=== PATIENT | male | born 1975 | race Caucasian/White ===

== ENCOUNTER 2019-10-28 11:25 | Emergency (ER) | payer OTHER, SELFPAY ==
--- NOTE | ~2019-10-28 | XR_ITS ---
EXAMINATION: XR shoulder RT min 2V DATE: 10/28/2019 12:24 INDICATION: Right shoulder pain post fall TECHNIQUE: AP internally and externally rotated, AP oblique externally rotated, axillary and views of the right shoulder were obtained. COMPARISON: None FINDINGS: Normal alignment. No fracture.Mild glenohumeral and acromioclavicular osteoarthritis. Soft tissues a re unremarkable. Right lung is clear. IMPRESSION: Mild glenohumeral and acromioclavicular osteoarthritis. No acute osseous abnormality. Reviewed, dictated and finalized at location A. IMPRESSION: Mild glenohumeral and acromioclavicular osteoarthritis. No acute osseous abnorm ality.
--- NOTE | ~2019-10-28 | XR_ITS ---
XR wrist RT min 3V DATE: 10/28/2019 12:24 INDICATION: Fall. Right wrist pain. TECHNIQUE: 4 views COMPARISON: None FINDINGS: No fracture or dislocation, periosteal reaction or bone destruction. Joint spaces appear re latively preserved. No erosive change or chondrocalcinosis. IMPRESSION: No fracture or dislocation Reviewed, dictated and finalized at location B. IMPRESSION: No fracture or dislocation
[2019-10-28 11:40] VITALS: BP 171/91; PULSE 93; RESP 20; TEMP 37.1; O2SAT 100
--- NOTE | 2019-10-28 11:52 | ED.GENADULT ---
HPI - General Adult General Chief complaint: Extremity Injury, Upper Stated complaint: shoulder & wrist pain/abd pain Time Seen by Provider: 10/28/19 11:56 Source: patient and RN notes reviewed Mode of arrival: ambulatory Limitations: no limitations History of Present Illness HPI narrative: 43-year-old male who presents to [facility] with complaints of pain to his right shoulder and his right wrist after lifting 75-80 pounds by himself on Saturday.Patient states that he also has some upper abdominal discomfort like he has strained something in his abdomen also. Patient states that his pain is in his right shoulder posteriorly radiating into the right side of his neck, states also he has some tingling in his right hand when he hyper extends his wrist. He has full ROM of his right wrist with strong right radial pulses, nail beds of hi right hand noé briskly. He has pain to his right shoulder with movement which is posteriorly which does radiate to the back of his neck, no palpable bulging noted to his upper abdomen with minimal discomfort upon palpation. MD complaint: right shoulder pain, right wrist pain, Onset (ago): day(s) (3) Location: abdomen (upper abdomen), right and upper extremity (right wrist) Radiation: neck Severity: moderate Severity scale (1-10): 4 Quality: aching Pain Consistency: intermittent Relieving factors: rest Exacerbating factors: movement Associated symptoms: denies other symptoms Treatments prior to arrival: NSAID Related Data Allergies Allergy/AdvReac Type Severity Reaction Status Date / Time codeine Allergy Mild Hives Verified 10/28/19 11:48 Review of Systems Review of Systems: Narrative: CONSTITUTIONAL: Denies fever, chills, or sweats. EYES: Denies visual changes, redness, or discharge. ENT: Denies rhinorrhea, congestion, sore throat, or otalgia. CARDIOVASCULAR: Denies chest pain, palpitations, or edema. RESPIRATORY: Denies cough or dyspnea. GASTROINTESTINAL: reports upper abdominal tenderness with movement, no nausea, vomiting, or diarrhea. GENITOURINARY: Denies dysuria or hematuria. SKIN: Denies rash or itching. MUSCULOSKELETAL: Denies back pain, joint pain, or myalgia.positive for right shoulder and right wrist pain NEUROLOGIC: Denies headache, numbness, or weakness. PSYCHIATRIC: Denies anxiety or depression. All systems reviewed & are unremarkable except as noted in HPI and below PMFSH Past Medical History Medical History (Updated 10/29/19 @ 08:52 by Shari Hawkins NP) Chronic bronchitis Hyperlipidemia Surgical History Surgical History (Updated 10/28/19 @ 12:18 by Shari Hawkins NP) Hx of cholecystectomy Comments At time of signature, agree with nursing past medical, surgical, social history. There is no relevant family history pertinent to the presenting complaint Exam Narrative: Exam Narrative: GENERAL: Well-appearing, well-nourished, and in no acute distress. HEAD: Normocephalic, atraumatic. EYES: PERRLA and EOMI. ENT: Nares clear, no rhinorrhea or epistaxis. Mucous membranes moist. NECK: Supple. CHEST: Clear to auscultation. No respiratory distress. HEART: Regular rate and rhythm. No murmur heard. Normal peripheral pulses. ABDOMEN: Soft, mild tenderness to upper abdomen on palpation,rounded, nondistended, normal active bowel sounds. EXTREMITIES: Normal range of motion. No edema.with exception noted to right shoulder pain posteriorly which radiates to right side of his neck with movement and right wrist pain noted with hyper extension, pulses strong to right arm and wrist with nail beds of right hand blanching briskly, SKIN: Warm, dry, no rash. NEURO: No focal deficits. Alert and oriented x3. Course Vital Signs Vital signs: Vital Signs Temperature 37.1 C 10/28/19 11:40 Pulse Rate 93 10/28/19 11:40 Respiratory Rate 20 10/28/19 11:40 Blood Pressure 171/91 H 10/28/19 11:40 Pulse Oximetry 100 10/28/19 11:40 Temperature 37.1 C 10/28/19 11:40 Pulse R
== END 2019-10-28 13:14 | disposition home or self-care (01) ==
PROVIDERS: Emergency Provider Registered Nurse
DX: S63.501A Unspecified sprain of right wrist, initial encounter (principal); M25.511 Pain in right shoulder; R10.10 Upper abdominal pain, unspecified; X50.0XXA Overexertion from strenuous movement or load, initial encounter
CPT/HCPCS: 73030; 73110; 99214; G0463

== ENCOUNTER 2020-04-09 14:24 | Emergency (ER) | payer SELFPAY | END 2020-04-09 14:41 | disposition left against medical advice (07) | LOC: EXPBETH 14:31 | PROVIDERS: Emergency Provider Nurse Practitioner | DX: Z53.21 Procedure and treatment not carried out due to patient leaving prior to being seen by health care provider (principal) | CPT/HCPCS: 99199 ==

== ENCOUNTER 2020-04-09 15:14 | Emergency (ER) | payer OTHER, SELFPAY ==
--- NOTE | ~2020-04-09 | XR_ITS ---
EXAMINATION: XR chest 1V portable DATE: 04/09/2020 16:12 INDICATION: COVID positive. One week of worsening shortness of breath. TECHNIQUE: frontal view of the chest was obtained. COMPARISON: Chest radiograph dated 05/19/2015 FINDINGS: New subtle opacities in the left mid and medial right lower lung zones. No pleural effusion or pneumo thorax. The cardiomediastinal silhouette is normal. At least mild thoracic spondylosis. IMPRESSION: 1. New subtle opacities in the left mid and right lower lung zones which could represent atelectasis or pneumonia. Reviewed, dictated and finalized at location A. [employer]
[2020-04-09 15:17] VITALS: BP 152/100; PULSE 88; RESP 24; TEMP 36.5; O2SAT 96
--- NOTE | 2020-04-09 15:37 | ED.GENADULT ---
HPI - General Adult General Chief complaint: Upper Respiratory Infection Stated complaint: COVID Time Seen by Provider: 04/09/20 15:23 Source: patient, RN notes reviewed and old records reviewed History of Present Illness HPI narrative: 44-year-old male presents to emergency department for COVID-19 symptoms for the past week. Patient states he initially noticed some joint pain, shortness of breath, and fatigue. He states the joint pain has gone away however the shortness of breath has worsened. He states he was tested a few days ago which came back positive. He has taken [id number] medications for his symptoms. He also reports fever and chills. Related Data Home Medications Medication Instructions Recorded Confirmed No Home Medications 04/09/20 04/09/20 Allergies Allergy/AdvReac Type Severity Reaction Status Date / Time codeine Allergy Mild Hives Verified 04/09/20 15:28 Review of Systems Review of Systems: Narrative: CONSTITUTIONAL: Reports fever and chills. EYES: Denies visual changes, redness, or discharge. ENT: Denies rhinorrhea, congestion, sore throat, or otalgia. CARDIOVASCULAR: Denies chest pain, palpitations, or edema. RESPIRATORY: Reports cough and shortness of breath. GASTROINTESTINAL: Denies abdominal pain, nausea, vomiting, or diarrhea. GENITOURINARY: Denies dysuria or hematuria. SKIN: Denies rash or itching. MUSCULOSKELETAL: Denies back pain, joint pain, or myalgia. NEUROLOGIC: Denies headache, numbness, dizziness. Reports weakness. PSYCHIATRIC: Denies anxiety or depression. All systems reviewed & are unremarkable except as noted in HPI and below (ROS) PMFSH Past Medical History Medical History Chronic bronchitis Hyperlipidemia Surgical History Surgical History Hx of cholecystectomy Exam Narrative: Exam Narrative: GENERAL: Well-appearing, well-nourished, and in no acute distress. HEAD: Normocephalic, atraumatic. EYES: PERRLA and EOMI. ENT: Nares clear, no rhinorrhea or epistaxis. Mucous membranes moist. NECK: Supple. CHEST: Clear to auscultation. No respiratory distress. HEART: Regular rate and rhythm. No murmur heard. Normal peripheral pulses. ABDOMEN: Soft, nontender, nondistended, normal active bowel sounds. EXTREMITIES: Normal range of motion. No edema. SKIN: Warm, dry, no rash. NEURO: No focal deficits. Alert and oriented x3. PSYCH: Normal mood and affect. Course Reevaluation(s) Reevaluation #1: 1640 -reevaluated patient, symptoms have improved. Feels better after albuterol treatments. Patient satting 96% on room air, normal sinus rhythm. Low suspicion for PE at this time. Chest x-ray concerning for Covid pneumonia. Counseled patient to follow-up with a medical provider within 1 week. Return to emergency department at any time if he notices increased work of breathing, shortness of breath, or difficulty breathing. Vital Signs Vital signs: Vital Signs Temperature 36.5 C 04/09/20 15:17 Pulse Rate 88 04/09/20 15:17 Respiratory Rate 24 H 04/09/20 15:17 Blood Pressure 152/100 H 04/09/20 15:17 Pulse Oximetry 96 04/09/20 15:17 Temperature 36.5 C 04/09/20 15:17 Pulse Rate 88 04/09/20 15:17 Respiratory Rate 24 H 04/09/20 15:17 Blood Pressure 152/100 H 04/09/20 15:17 Pulse Oximetry 96 04/09/20 15:17 Medical Decision Making Medical Records Medical records reviewed: Yes I reviewed the patient's medical records. Vital Signs Vital Signs: Vital Signs Temperature 36.5 C 04/09/20 15:17 Pulse Rate 88 04/09/20 15:17 Respiratory Rate 24 H 04/09/20 15:17 Blood Pressure 152/100 H 04/09/20 15:17 Pulse Oximetry 96 04/09/20 15:17 Temperature 36.5 C 04/09/20 15:17 Pulse Rate 88 04/09/20 15:17 Respiratory Rate 24 H 04/09/20 15:17 Blood Pressure 152/100 H 04/09/20 15:17 Pulse Oximetry 96 04/09/20 15:17 Lab [facility]
[2020-04-09] MEDS: ALBUTEROL SULFATE (*SP) AEROSOL 1 PUFF 4 PUFF INHALATION (15:50)
[2020-04-09 16:04] LABS: Basophils Percent Auto 0.2 % (0.2-1.2); Hematocrit 45.4 % (42.0-52.0); Hemoglobin 15.1 g/dL (14.0-18.0); Immature Granulocyte Absolute 0.02 K/mm3 (0.00-0.031); Immature Granulocyte Percent A 0.3 % (0-0.5); Lymphocytes Absolute Auto 1.65 K/mm3 (0.9-3.2); Lymphocytes Percent Auto 25.9 % (18.3-44.2); Mean Corpuscular HGB Conc 33.3 g/dl (32-36); Mean Corpuscular Hemoglobin 28.9 pg (26-34); Mean Corpuscular Volume 86.8 fl (80-100); Mean Platelet Volume 9.9 fl (7.4-10.4); Monocytes Absolute Auto 0.7 K/mm3 (0.1-0.6); Monocytes Percent Auto 10.8 % (2.6-8.5); Neutrophils Percent Auto 62.8 % (45.5-73.1); Platelet Count Result 290 k/mm3 (150-375); Red Blood Count 5.23 M/mm3 (4.6-6.20); Red Cell Distribution Width 14.1 % (11.5-14.5); White Blood Count 6.4 K/mm3 (4.5-10.0)
[2020-04-09] MEDS: KETOROLAC 15 MG/ML VIAL (*BKC) IV PUSH (16:09)
[2020-04-09] MEDS: ACETAMINOPHEN 325 MG TABLET 650 MG PO (16:10)
[2020-04-09 16:14] VITALS: BP 145/92; PULSE 90; RESP 20; O2SAT 95
[2020-04-09 16:16] LABS: Alanine Aminotransferase 87 U/L (4-50); Alkaline Phosphatase 107 U/L (38-126); Anion Gap 6 mmol/L (8-16); Aspartate Amino Transferase 89 U/L (17-59); Bilirubin,Total 0.6 mg/dL (0.2-1.3); Blood Urea Nitrogen 12 mg/dL (9-20); Calcium 8.8 mg/dL (8.4-10.2); Carbon Dioxide 27 mmol/L (22-30); Chloride 108 mmol/L (98-107); Estimated CRCL calculation 113 ml/min; Estimated Glomerular Filt Rate > 60; Glucose 107 mg/dL (75-110); Sodium 141 mmol/L (137-145)
[2020-04-09 16:51] VITALS: BP 145/92; PULSE 98; RESP 20; O2SAT 96
== END 2020-04-09 16:56 | disposition home or self-care (01) ==
PROVIDERS: Emergency Provider Emergency Medicine
DX: U07.1 COVID-19 (principal); J12.82 Pneumonia due to coronavirus disease 2019; E78.5 Hyperlipidemia, unspecified
CPT/HCPCS: 36415; 71045; 80053; 85025; 96374; 99284; A9270; J1885

== ENCOUNTER 2022-09-13 10:57 | Emergency (ER) | payer SELFPAY ==
--- NOTE | ~2022-09-13 | CT_ITS ---
Non-contrast Head CT History: Head injury COMPARISON: 02/18/2017 Technique: Axial non-contrast imaging of the brain was performed. Dose reduction technique was used on this scan by utilizing automated exposure control and iterative reconstruction technique. The dose -length product (DLP) was 605.33 mGy-cm. Findings: There is no evidence of intracranial hemorrhage, mass lesion, or acute infarct. Brain par enchyma appears normal. The ventricles and subarachnoid spaces are normal in size. The calvarium ap pears normal. The visualized paranasal sinuses and mastoid air cells are clear. Impression: No significant abnormality seen. Reviewed, dictated and finalized at location . Impression: No significant abnormality seen.
[2022-09-13 11:00] VITALS: BP 164/80; PULSE 107; RESP 18; TEMP 36.6; O2SAT 98
[2022-09-13] MEDS: TETANUS,DIPHTHERIA,AC PERTUSSIS ADULT (0.5 ML) BOOSTRIX IM (12:52)
--- NOTE | 2022-09-13 13:08 | ED.HEATRA ---
HPI - Head Injury General Chief complaint: Head Injury Stated complaint: hit head with trunk door Time Seen by Provider: 09/13/22 11:43 History of Present Illness HPI Narrative: 46-year-old male reports for evaluation of a head injury that occurred just prior to arrival. Patient states his was shutting the trunk of the car with his head still in the back of the trunk, the door hit the patient's head. States he did not lose consciousness or fall to the ground. He does report a laceration to the vertex of his scalp. Denies focal numbness or weakness, vision changes, other injuries acquired during the injury. Last tetanus unknown. States he took naproxen 3 hours prior to arrival. Related Data Home Medications Medication Instructions Recorded Confirmed No Home Medications 04/09/20 04/09/20 Allergies Allergy/AdvReac Type Severity Reaction Status Date / Time codeine Allergy Mild Hives Verified 04/09/20 15:28 Review of Systems Review of Systems: CONSTITUTIONAL: Denies fever, chills EYES: Denies visual changes, redness, or discharge. ENT: Denies rhinorrhea, congestion, sore throat, or otalgia. CARDIOVASCULAR: Denies chest pain, palpitations, or edema. RESPIRATORY: Denies cough or dyspnea. GASTROINTESTINAL: Denies abdominal pain, nausea, vomiting, or diarrhea. GENITOURINARY: Denies dysuria or hematuria. SKIN: See HPI MUSCULOSKELETAL: Denies back pain, joint pain, or myalgia. NEUROLOGIC: Denies headache, numbness, dizziness, or weakness. PSYCHIATRIC: Denies anxiety or depression. [facility] Past Medical History Medical History Chronic bronchitis Hyperlipidemia Surgical History Surgical History Hx of cholecystectomy Exam Narrative: GENERAL: Well-appearing, in no acute distress. HEAD: Normocephalic EYES: PERRLA ENT: Nares clear. Mucous membranes moist. Oropharynx without tonsillar hypertrophy exudate or other lesions. Bilateral TMs are velez nonbulging. NECK: Supple. CHEST: No respiratory distress. Clear to auscultation, no adventitious breath sounds. HEART: Regular rate and rhythm. No murmur heard. Normal peripheral pulses. EXTREMITIES: Normal range of motion. No edema. SKIN: 1 cm laceration to the vertex of the scalp. Bleeding controlled. No foreign bodies or deep structures visualized. NEURO: No focal deficits. Alert and oriented x3. Cranial nerves II through XII intact. Strength 5/5 in BUE and BLE. Sensation intact throughout. Ambulatory without difficulty. PSYCH: Normal mood and affect. Course Course Emergency Course: Pain medications offered to the patient, he declined. Vital Signs Vital signs: Vital Signs Temperature 97.8 F 09/13/22 11:00 Pulse Rate 107 H 09/13/22 11:00 Respiratory Rate 18 09/13/22 11:00 Blood Pressure 164/80 H 09/13/22 11:00 Pulse Oximetry 98 09/13/22 11:00 Oxygen Delivery Room Air 09/13/22 11:00 Temperature 97.8 F 09/13/22 11:00 Pulse Rate 107 H 09/13/22 11:00 Respiratory Rate 18 09/13/22 11:00 Blood Pressure 164/80 H 09/13/22 11:00 Pulse Oximetry 98 09/13/22 11:00 Oxygen Delivery Room Air 09/13/22 11:11 Procedures Laceration Laceration 1: Date: 09/13/22 Time: 13:24 Site: scalp Size (cm): 1 Description: linear and clean Depth: simple, single layer Pre-repair: wound explored and irrigated ====== Skin Level ====== Skin layer closed with: luis Number of sutures: 1 ====== Subcutaneous Layer ====== ====== Muscle Layer ====== ====== Tendon Layer ====== MDM - Head Injury MDM Narrative Medical decision making narrative: 46-year-old male reports for evaluation of a head injury that occurred just prior to arrival after his accidentally struck the car trunk on his head. Vitals reveal mildly elevated blood pressu
== END 2022-09-13 13:31 | disposition home or self-care (01) ==
PROVIDERS: Emergency Provider Physician Assistant
DX: S01.01XA Laceration without foreign body of scalp, initial encounter (principal); Z23 Encounter for immunization; J42 Unspecified chronic bronchitis; E78.5 Hyperlipidemia, unspecified; Z90.49 Acquired absence of other specified parts of digestive tract; W22.8XXA Striking against or struck by other objects, initial encounter
CPT/HCPCS: 12001; 70450; 90471; 90715; 99284

== ENCOUNTER 2022-09-20 12:08 | Emergency (ER) | payer SELFPAY ==
--- NOTE | 2022-09-20 12:13 | ED.WOUNDLAC ---
HPI - Wound/Laceration General Chief Complaint: Wound/Laceration Stated Complaint: need luis removed Time Seen by Provider: 09/20/22 12:17 Source: patient, RN notes reviewed and old records reviewed Mode of arrival: ambulatory Limitations: no limitations History of Present Illness HPI narrative: Patient was seen and evaluated on September 13 after head trauma in the local ER. One staple placed. Presents to have staple removed. Related Data Home Medications Medication Instructions Recorded Confirmed No Home Medications 04/09/20 04/09/20 Allergies Allergy/AdvReac Type Severity Reaction Status Date / Time codeine Allergy Mild Hives Verified 04/09/20 15:28 Review of Systems Review of Systems: All systems reviewed & are unremarkable except as noted in HPI and below Constitutional: Constitutional: Reports no additional constitutional complaints Eyes: Eyes: Reports no additional eye complaints ENT: Reports system reviewed and no additional complaints, except as documented Cardiovascular: Cardiovascular: Reports no additional cardiovascular complaints, Denies chest pain and Denies dyspnea Respiratory: Respiratory: Reports no additional respiratory complaints, Denies chest congestion, Denies cough and Denies dyspnea Gastrointestinal: Gastrointestinal: Reports no additional gastrointestinal complaints, Denies abdominal pain, Denies nausea and Denies vomiting Musculoskeletal: Musculoskeletal: Reports no additional musculoskeletal complaints Integumentary/Breasts: Skin/Breast: Reports as per HPI Neurologic: Reports system reviewed and no additional complaints, except as documented Psychiatric: Psychiatric: Reports no additional psychiatric complaints Allergic/Immunologic: Allergic/Immunologic: Reports no additional allergic/immunologic complaints PMFSH Past Medical History Medical History Chronic bronchitis Hyperlipidemia Surgical History Surgical History Hx of cholecystectomy Comments At the time of my signature, I reviewed and agree with the nursing past medical, surgical, social, and family history. There is no relevant family history pertinent to the patient complaint. Exam Const: General: cooperative, healthy appearing, comfortable, no acute distress, well developed, alert and well nourished Nutritional Appearance: well nourished Orientation/consciousness: patient oriented x3 Limitations: no limitations HENMT: Head: normal to inspection Ears: hearing grossly normal bilaterally and external ears normal Face/Nose/Sinus: Normal external nose present, Normal nares present, Normal nasal mucous membranes and turbinates present and normal facial exam Face and sinus: normal facial exam Eyes: General: appearance normal, both eyes and all related structures Alignment and Position: alignment normal Periorbital: periorbital findings normal Pupils: Equal, round and reactive pupils present EOM: EOMs intact bilaterally Neck: Neck: normal visual inspection, full ROM, no lymphadenopathy and no meningeal signs Chest: Chest palpation & inspection: normal inspection of the chest Resp: Effort & Inspection: normal respiratory effort and able to speak in complete sentences Cardio: Rate: regular rate Rhythm: regular rhythm Back/Spine/Pelvis: Cervical Spine: cervical ROM normal Thoracic/Lumbar Spine: No thoracic spinal tenderness Skin: General skin exam: normal color and no rashes or lesions noted Lesions: no lesions Rashes: no rashes Wounds: no wounds Other: Fully approximated healing laceration with [address] No erythema, swelling noted Neuro: General: patient oriented x3, gait normal, tone normal, moves all extremities and no meningeal signs Cranial nerves: Yes Equal, round and reactive pupils present Cognition (Neuro): normal cognition Speech: normal speech Gait exam (Neuro):
[2022-09-20 12:14] VITALS: BP 144/81; PULSE 78; RESP 16; TEMP 36.8; O2SAT 100
--- NOTE | 2022-09-20 15:59 | PC.NURSE ---
luis removed at 1202, charting is at 1558
== END 2022-09-20 12:30 | disposition home or self-care (01) ==
PROVIDERS: Emergency Provider Nurse Practitioner
DX: S01.91XD Laceration without foreign body of unspecified part of head, subsequent encounter (principal); X58.XXXD Exposure to other specified factors, subsequent encounter; E78.5 Hyperlipidemia, unspecified
CPT/HCPCS: 99211; G0463

== ENCOUNTER 2023-02-08 11:06 | Emergency (ER) | payer OTHER, SELFPAY ==
--- NOTE | ~2023-02-08 | XR_ITS ---
XR knee RT min 4V DATE: 02/08/2023 11:30 INDICATION: Pain after bending yesterday TECHNIQUE: 4 views COMPARISON: None FINDINGS: Prominent patellar enthesopathy superiorly at the quadriceps tendon insertion and inferior at the patellar tendon insertion. There is mild periarticular spurring of the patella and minimal periarticular spurring at the medial and lateral compartments. Knee joint spaces appear well preserved. No fracture or dislocation or joint effusion. No radiopaque intra-articular loose body or chondral ca lcinosis. No periosteal reaction or bone destruction. IMPRESSION: Mild tricompartment osteoarthritis Reviewed, dictated and finalized at location B. [facility]
[2023-02-08 11:08] VITALS: BP 162/83; PULSE 78; RESP 16; TEMP 36.5; O2SAT 100
--- NOTE | 2023-02-08 12:28 | ED.LOWEXIN ---
HPI - Extremity Injury (Lower) General Chief Complaint: Extremity Injury, Lower Stated Complaint: R knee injury Time Seen by Provider: 02/08/23 11:37 Source: patient History of Present Illness HPI Narrative: 47-year-old male presents to the emergency department today with complaint of right knee pain that he noticed yesterday. States he was kneeling at work when he noticed some right knee pain which had worsened when he got out of a vehicle. This morning he went to kneel down to get the money out of the save the pain was 100/10. MD complaint: knee injury Related Data Allergies Allergy/AdvReac Type Severity Reaction Status Date / Time codeine Allergy Mild Hives Verified 02/08/23 11:37 Review of Systems Review of Systems: All systems reviewed & are unremarkable except as noted in HPI and below PMFSH Past Medical History Medical History Chronic bronchitis Hyperlipidemia Hypertension Surgical History Surgical History Hx of cholecystectomy Exam Const: General: cooperative, healthy appearing, comfortable, no acute distress and well developed Orientation/consciousness: patient oriented x3 HENMT: Head: normal to inspection Eyes: General: appearance normal, both eyes and all related structures Resp: Effort & Inspection: normal respiratory effort and able to speak in complete sentences Auscultation: clear to auscultation bilaterally Cardio: Rate: regular rate Rhythm: regular rhythm Heart sounds: S1 normal heart sound present and S2 normal heart sound present Neuro: General: patient oriented x3 Extrem: Right lower extremity: knee ( Stephany Lakhani) Details: tenderness Location: of the patella (central), normal ROM, knee ligament exam normal and other ( no erythema, no effusion); no swelling, no ecchymosis and no unusual warmth Course Vital Signs Vital signs: Vital Signs Temperature 97.7 F 02/08/23 11:08 Pulse Rate 78 02/08/23 11:08 Respiratory Rate 16 02/08/23 11:08 Blood Pressure 162/83 H 02/08/23 11:08 Pulse Oximetry 100 02/08/23 11:08 Oxygen Delivery Room Air 02/08/23 11:08 Temperature 97.7 F 02/08/23 11:08 Pulse Rate 78 02/08/23 11:08 Respiratory Rate 16 02/08/23 11:08 Blood Pressure 162/83 H 02/08/23 11:08 Pulse Oximetry 100 02/08/23 11:08 Oxygen Delivery Room Air 02/08/23 11:08 MDM - Extremity Injury (Lower) MDM Narrative Medical decision making narrative: HPI is noted differentials below. Reviewed x-ray with patient. X-ray shows osteoarthritis. Ligament exam normal. Plan for discharge with NSAIDs and follow-up with primary care for further imaging if indicated. Patient aware and agreement with plan of care at this time. Differential Diagnosis Differential diagnosis: Likely acute internal derangement of knee and other ( The sprain, arthritis,) Discharge Plan Discharge Clinical Impression: Acute pain of right knee, Osteoarthritis of right knee Patient Disposition: Home, Self-Care Condition: Stable Instructions: Antibiotic Form Prescriptions: New naproxen 500 mg tablet 500 mg PO BID PRN (Reason: pain) Qty: 60 0RF Follow-up/Referrals: Bonita Anderson [Other] Time of Disposition: 12:31
== END 2023-02-08 12:37 | disposition home or self-care (01) ==
PROVIDERS: Emergency Provider Nurse Practitioner Family
DX: M17.11 Unilateral primary osteoarthritis, right knee (principal); E78.5 Hyperlipidemia, unspecified; I10 Essential (primary) hypertension
CPT/HCPCS: 73564; 99283

== ENCOUNTER 2023-04-11 13:50 | Emergency (ER) | payer BC, SELFPAY ==
--- NOTE | ~2023-04-11 | XR_ITS ---
EXAMINATION: XR chest 2V DATE: 04/11/2023 14:25 INDICATION: Cough. Lung pain. TECHNIQUE: Frontal and lateral views of the chest were obtained. COMPARISON: Chest single view 04/09/2020 FINDINGS: There is no pneumonia, pleural effusion, or pneumothorax. The heart size is normal. There a re surgical clips in the abdomen. IMPRESSION: 1. No acute cardiopulmonary disease. Reviewed, dictated and finalized at location E. [facility]
[2023-04-11 14:01] VITALS: BP 155/78; RESP 16; TEMP 36.9; O2SAT 99
--- NOTE | 2023-04-11 14:07 | ED.GENADULT ---
HPI - General Adult General Chief complaint: Upper Respiratory Infection Stated complaint: SOB/LUNG CRAMPS Time Seen by Provider: 04/11/23 14:02 Source: patient and RN notes reviewed Mode of arrival: ambulatory Limitations: no limitations History of Present Illness HPI narrative: Patient presents today complaining of an approximately 2 week history of cough with constant shortness of breath. He also reports, ?cramping? below his bilateral anterior ribs. He has been taking naproxen and Benadryl but cannot tell if it is providing him relief. Currently rates his pain 06/01. Related Data Allergies Allergy/AdvReac Type Severity Reaction Status Date / Time codeine Allergy Mild Hives Verified 02/08/23 11:37 Review of Systems Review of Systems: CONSTITUTIONAL: Denies body aches, fever, chills, or sweats. EYES: Denies visual changes, redness, or discharge. ENT: Denies rhinorrhea, congestion, sore throat, or otalgia. CARDIOVASCULAR: Denies chest pain, palpitations, or edema. RESPIRATORY: + cough, shortness of breath GASTROINTESTINAL: Denies abdominal pain, nausea, vomiting, or diarrhea. GENITOURINARY: Denies dysuria or hematuria. SKIN: Denies rash, itching, or wounds. MUSCULOSKELETAL: Denies back pain, joint pain, or myalgia. NEUROLOGIC: Denies headache, numbness, tingling, or weakness. PSYCH: Denies depression or anxiety. [facility] Past Medical History Medical History Chronic bronchitis Hyperlipidemia Hypertension Surgical History Surgical History Hx of cholecystectomy Comments At time of signature, I have reviewed and agree with nursing past medical, surgical, social and family history unless otherwise noted. Please see nursing chart for further information. There is no relevant family history pertinent to the presenting complaint Exam Narrative: GENERAL: Well-appearing, well-nourished, and in no acute distress. HEAD: Normocephalic, atraumatic. EYES: EOMI. No redness or drainage. Conjunctivae normal. ENT: Mucous membranes pink and moist. Nares clear. No rhinorrhea. TMs normal bilaterally. Throat normal. Uvula midline. NECK: Normal AROM. Supple. No lymphadenopathy. CHEST: No respiratory distress. Clear to auscultation. HEART: Regular rate and rhythm. No murmur appreciated. EXTREMITIES: Normal range of motion. No edema. SKIN: Warm, dry, no rash. Capillary refill normal. Normal skin turgor. NEURO: No focal deficits. Alert and oriented x3. Gait steady. PSYCH: Normal affect. No signs of depression or anxiety. Course Course Level of Care: Express Care Visit Vital Signs Vital signs: Vital Signs Temperature 98.5 F 04/11/23 14:01 Respiratory Rate 16 04/11/23 14:01 Blood Pressure 155/78 H 04/11/23 14:01 Pulse Oximetry 99 04/11/23 14:01 Temperature 98.5 F 04/11/23 14:01 Respiratory Rate 16 04/11/23 14:01 Blood Pressure 155/78 H 04/11/23 14:01 Pulse Oximetry 99 04/11/23 14:01 Reviewed Medical Decision Making MDM Narrative Medical decision making narrative: Chest x-ray negative. Patient will be treated for bronchitis with prednisone and an albuterol inhaler. He has declined prescription for cough medicine. Anticipatory guidance given. Differential Diagnosis Differential Diagnosis: Viral syndrome, bronchitis, pneumonia, pleurisy Vital Signs Vital Signs: Vital Signs Temperature 98.5 F 04/11/23 14:01 Respiratory Rate 16 04/11/23 14:01 Blood Pressure 155/78 H 04/11/23 14:01 Pulse Oximetry 99 04/11/23 14:01 Temperature 98.5 F 04/11/23 14:01 Respiratory Rate 16 04/11/23 14:01 Blood Pressure 155/78 H 04/11/23 14:01 Pulse Oximetry 99 04/11/23 14:01 Imaging Data Radiologist's impression: ITS Impressions Chest X-Ray 04/11/23 14:27 IMPRESSION: 1. No acute cardiopulmonary disease. Critical
== END 2023-04-11 14:50 | disposition home or self-care (01) ==
PROVIDERS: Emergency Provider Nurse Practitioner
DX: J40 Bronchitis, not specified as acute or chronic (principal); E78.5 Hyperlipidemia, unspecified; I10 Essential (primary) hypertension
CPT/HCPCS: 71046; 99213; G0463

== ENCOUNTER 2025-03-22 10:08 | Emergency (ER) | payer SELFPAY ==
[2025-03-22 10:16] VITALS: BP 137/75; PULSE 82; RESP 16; TEMP 36.6; O2SAT 97
--- NOTE | 2025-03-22 10:16 | ED.URI ---
HPI - URI/Sore Throat General Chief Complaint: Upper Respiratory Infection Stated Complaint: Upper Respiratory Symptoms Time Seen by Provider: 03/22/25 10:20 Source: patient Mode of arrival: ambulatory Limitations: no limitations History of Present Illness HPI Narrative: Mars is a 49-year-old male patient presenting to the clinic today with complaints of cough, nasal congestion, and chest congestion x1 week. He reports a cough is nonproductive. He denies any chest pain but states he does get short of breath at times. Feels as though he is wheezing a lot. History of chronic bronchitis in the past. No fevers, chills, body aches. Related Data Home Medications ?Medication ?Instructions ?Recorded ?Confirmed ?Last Taken ?Type buspirone 10 mg tablet 10 mg PO BID 03/22/25 03/22/25 Unknown History celecoxib 200 mg capsule 200 mg PO Q24H 03/22/25 03/22/25 Unknown History citalopram 40 mg tablet 40 mg PO DAILY 03/22/25 03/22/25 Unknown History cyclobenzaprine 10 mg tablet 10 mg PO HS 03/22/25 03/22/25 Unknown History losartan 100 mg tablet 100 mg PO DAILY 03/22/25 03/22/25 Unknown History Allergies Allergy/AdvReac Type Severity Reaction Status Date / Time codeine Allergy Mild Hives Verified 02/08/23 11:37 Review of Systems Review of Systems: Pertinent positives per HPI. Patient denies any fever, chills, rash, headache, visual changes, dizziness, shortness of breath, chest pain, palpitations, nausea, vomiting, diarrhea, constipation, abdominal pain, or any urinary issues. PMFSH Past Medical History Medical History Chronic bronchitis Hyperlipidemia Hypertension Surgical History Surgical History Hx of cholecystectomy Comments At the time of my signature, I reviewed and agree with the nursing past medical, surgical, social, and family history. There is no relevant family history pertinent to the patient complaint. Exam Narrative: General: Well-developed, well nourished, in no apparent distress Head: Normocephalic, atraumatic Eyes: Pupils equally round and reactive to light bilaterally, EOM intact, sclera and conjunctive clear, no discharge, lids normal Ears: TMs intact and clear, ear canals clear, no drainage, grossly hearing normal. Nose: Nares patent, clear nasal discharge, moderate inflammation, no sinus tenderness. Mouth: Oral pharynx without lesions or masses, good dentition, MMM. Neck: Supple, trachea midline, no enlargement of anterior or posterior cervical nodes, no thyroid masses or goiter palpable. Cardio: Regular rate and rhythm, s1 and s2 normal, no murmur appreciated. Resp: Lung sounds diminished in the bases with faint wheezing, no rhonchi, rales, or rubs Course Course Level of Care: Express Care Visit Vital Signs Vital signs: Vital Signs Temperature 36.6 C 03/22/25 10:16 Pulse Rate 82 03/22/25 10:16 Respiratory Rate 16 03/22/25 10:16 Blood Pressure 137/75 03/22/25 10:16 Pulse Oximetry 97 03/22/25 10:16 Oxygen Delivery Room Air 03/22/25 10:16 Temperature 36.6 C 03/22/25 10:16 Pulse Rate 82 03/22/25 10:16 Respiratory Rate 16 03/22/25 10:16 Blood Pressure 137/75 03/22/25 10:16 Pulse Oximetry 97 03/22/25 10:16 Oxygen Delivery Room Air 03/22/25 10:16 [facility] MDM Narrative Medical decision making narrative: At the time of visit patient is resting comfortably on the exam table. Patient appears to be nontoxic. Complaints of cough, nasal congestion, and chest congestion x1 week. He reports a cough is nonproductive. He denies any chest pain but states he does get short of breath at times. Feels as though he is wheezing a lot. History of chronic bronchitis in the past. No fevers, chills, body aches. On exam patient has bilateral TMs intact and clear, clear nasal drainage, moderate anterior turbinate inflammation, oral pharynx normal, lung sounds diminished at bases with faint wheezing, heart rates regular rate rhythm. Plan: I suspect patient has bronchitis. Prescription for prednisone and Tessalon Perles was sent to the pharmacy. Patient already has an albuterol inhaler. No sign of bacterial infection in the clinic today. Supportive measures were discussed with the patient and they voiced understanding discharge instructions and agrees to treatment plan. Return precautions reviewed Differential Diagnosis Differential Diagnosis: Differential diagnostic considerations for upper respiratory infection include upper respiratory infection, croup, otitis media, sinusitis, viral infection, bronchitis, influenza, pharyngitis, strep, uvulitis. Discharge Plan Discharge Clinical Impression: Bronchitis Patient Disposition: Home Condition: Stable Instructions: Antibiotic Form, Acute Bronchitis (ED) Additional Instructions: Take prescription medications only as prescribed-prednisone and Tessalon Perles Continue use of albuterol inhaler as needed for shortness of breath, cough, and wheezing Increase fluids and stay well hydrated May take Tylenol or motrin as directed on bottle for pain/fever May use Flonase 1 spray in each nare daily May take OTC antihistamines such as Zyrtec or Claritin daily as directed on bottle May apply Vicks vapor rub to chest to open sinuses Sinus rinses for congestion Cepacol spray, cough drops, throat lozenges, warm tea with honey/lemon, gargle salt water to soothe throat BRAT diet for diarrhea Clear liquids x 24 hours then advance as tolerated for nausea/vomiting Go to the ED if you develop a worsening in your condition- high fever not controlled by Tylenol or Motrin, dehydration, weakness, lethargy, shortness of breath, or chest pain. Follow up with your PCP in 3-5 days if symptoms persist. Patient Language: [place]uran Prescriptions: New benzonatate 200 mg capsule 200 mg PO TID 7 Days Qty: 21 0RF prednisone 20 mg tablet 40 mg PO DAILY 5 Days Qty: 10 0RF No Action albuterol sulfate [ProAir HFA] 90 mcg/actuation HFA aerosol inhaler 2 puff INHALATION Q4-6H PRN (Reason: shortness of breath or wheezing) Qty: 18 0RF (DME) B[employer]he[employer] MDI Spacer Spacer See Rx Instructions .ROUTE .MEDSUPPLY Qty: 1 0RF Rx Instructions: As directed buspirone 10 mg tablet 10 mg PO BID citalopram 40 mg tablet 40 mg PO DAILY celecoxib 200 mg capsule 200 mg PO Q24H cyclobenzaprine 10 mg tablet 10 mg PO HS losartan 100 mg tablet 100 mg PO DAILY Follow-up/Referrals: PHYSICIAN,DRAFTING INSTRUCTOR [Primary Care Provider, Internal Medicine] Time of Disposition: 10:27 Quality NIHSS Nursing Documentation ED NIHSS nursing documentation: reviewed/agree
== END 2025-03-22 10:32 | disposition home or self-care (01) ==
PROVIDERS: Emergency Provider Nurse Practitioner Family
DX: J42 Unspecified chronic bronchitis (principal); E78.5 Hyperlipidemia, unspecified; I10 Essential (primary) hypertension; Z90.49 Acquired absence of other specified parts of digestive tract
CPT/HCPCS: 99213; G0463